=== PATIENT | female | born 1990 | race Caucasian/White ===

== ENCOUNTER 2019-01-16 08:22 | Inpatient (IN) | payer OTHER ==
[2019-01-16] MEDS ORDERED: MISOPROSTOL 200 MCG TAB PR ×2 (09:00→12:00)
[2019-01-16] MEDS ORDERED: CEFAZOLIN 2 GM/50 ML (PMX) 50 ML IVPB (09:00)
[2019-01-16] MEDS ORDERED: METHYLERGONOVINE 0.2 MG INJ IM ×2 (09:00→12:00)
[2019-01-16] MEDS ORDERED: OXYTOCIN 30 UNITS/LR 500 ML IV ×2 (09:00→12:00)
[2019-01-16] MEDS ORDERED: CARBOPROST 250 MCG INJ IM ×2 (09:00→12:00)
[2019-01-16] MEDS: LACTATED RINGER'S 1,000 ML IV ×2 (09:31→23:24)
[2019-01-16 09:39] LABS: ADD MAN DIFF? NO
[2019-01-16 09:44] LABS: WHITE BLOOD COUNT 7.5 10^3/ul (4.8-10.8)
[2019-01-16 09:44] LABS: BASOPHILS % 0.4 % (0.0-2.0); EOSINOPHILS # 0.1 10^3/ul (0.0-0.5); EOSINOPHILS % 0.9 % (0.0-7.0); HEMATOCRIT 40.4 % (37.0-47.0); HEMOGLOBIN 13.8 g/dl (12.0-16.0); LYMPHOCYTES # 1.8 10^3/ul (0.8-2.9); LYMPHOCYTES % 23.5 % (15.0-51.0); MEAN CORPUSCULAR HEMOGLOBIN 33.3 pg (29.0-33.0); MEAN CORPUSCULAR HGB CONC 34.2 g/dl (32.0-37.0); MEAN CORPUSCULAR VOLUME 97.3 fl (82.0-101.0); MEAN PLATELET VOLUME 10.3 fl (7.4-10.4); MONOCYTE # 0.5 10^3/ul (0.3-0.9); NEUTROPHIL # 5.1 10^3/ul (1.6-7.5); NEUTROPHILS % 68.7 % (39.0-77.0); PLATELET COUNT 179 10^3/UL (140-415); RED BLOOD COUNT 4.15 10^6/ul (4.20-5.40); RED CELL DISTRIBUTION WIDTH 13.2 % (11.5-14.5)
[2019-01-16 10:03] LABS: INR 0.89; PROTIME 12.1 Sec (11.9-14.9); PT RATIO 0.9
[2019-01-16 10:04] LABS: PARTIAL THROMBOPLASTIN TIME 25.7 Sec (23.0-35.0)
[2019-01-16] MEDS ORDERED: CITRIC ACID/NA CITRATE 30 ML CUP (11:05)
[2019-01-16] MEDS ORDERED: ONDANSETRON 4 MG INJ (11:06)
[2019-01-16] MEDS: ONDANSETRON 4 MG INJ IV (11:12)
[2019-01-16] MEDS: CITRIC ACID/NA CITRATE 30 ML CUP PO (11:12)
[2019-01-16] MEDS: CEFAZOLIN 2 GM/50 ML (PMX) 50 ML IVPB ×2 (11:24→23:24)
[2019-01-16] MEDS ORDERED: OXYTOCIN 10 UNIT INJ (11:27)
[2019-01-16] MEDS ORDERED: morphine SULFATE/PF (10 MG/10 ML) INJ (11:27)
[2019-01-16] MEDS ORDERED: METOCLOPRAMIDE 10 MG INJ (11:27)
[2019-01-16] MEDS ORDERED: NALOXONE (0.4 MG/ML) INJ IV (12:00)
[2019-01-16] MEDS ORDERED: FENTAnyl 50 MCG/ML VIAL IV ×3 (12:00)
[2019-01-16] MEDS ORDERED: ALBUTEROL 0.083% (NEB) 2.5 MG/3 ML AMP HHN (12:00)
[2019-01-16] MEDS ORDERED: IPRATROPIUM (NEB) 0.5 MG/2.5 ML AMP HHN (12:00)
[2019-01-16] MEDS ORDERED: TRIMETHOBENZAMIDE 100 MG/ML VIAL IM ×2 (12:00)
[2019-01-16] MEDS ORDERED: NA PHOSPHATE/BIPHOS 133 ML ENEMA PR (12:00)
[2019-01-16] MEDS ORDERED: MIDAZOLAM 1 MG/ML 2 ML INJ IV (12:00)
[2019-01-16] MEDS ORDERED: MEPERIDINE 25 MG INJ IV (12:00)
[2019-01-16] MEDS ORDERED: hydrALAzine 20 MG INJ IV (12:00)
[2019-01-16] MEDS ORDERED: EPHEDrine 25 MG/5 ML SYG IV (12:00)
[2019-01-16] MEDS ORDERED: HYDROmorphONE 1 MG/5 ML IV SYRINGE IV ×3 (12:00)
[2019-01-16] MEDS ORDERED: ONDANSETRON 4 MG INJ IV ×2 (12:00)
[2019-01-16] MEDS ORDERED: METHYLERGONOVINE 0.2 MG TAB PO (12:00)
[2019-01-16] MEDS ORDERED: HYDROCODONE/APAP (5/325) TAB PO (12:00)
[2019-01-16] MEDS ORDERED: OXYCODONE/ACETAMINOPHEN (5/325) TAB PO ×2 (12:00)
[2019-01-16] MEDS ORDERED: LABETALOL HCL 20MG INJ IV (12:00)
[2019-01-16] MEDS ORDERED: DIPHENHYDRAMINE 50 MG INJ IV ×2 (12:00)
[2019-01-16] MEDS ORDERED: morphine 2 MG INJ IV ×2 (12:00)
[2019-01-16] MEDS ORDERED: NALBUPHINE HCL (10 MG/1 ML) INJ IV (12:00)
[2019-01-16] MEDS: OXYTOCIN 30 UNITS/LR 500 ML IV (14:13)
[2019-01-16 15:15] LABS: RAPID PLASMA REAGIN NONREACTIVE (NR)
[2019-01-16] MEDS ORDERED: CEFAZOLIN 1 GM INJ IVPB (15:52)
[2019-01-16] MEDS: SENNA/DOCUSATE NA (8.6MG/50MG) TAB PO (21:00)
[2019-01-17] MEDS: CEFAZOLIN 2 GM/50 ML (PMX) 50 ML IVPB ×2 (07:00→12:35)
[2019-01-17 08:16] LABS: ADD MAN DIFF? NO
[2019-01-17] MEDS: LANOLIN HPA 1 PKT TOP (08:24)
[2019-01-17] MEDS: SENNA/DOCUSATE NA (8.6MG/50MG) TAB PO ×2 (08:24→21:46)
[2019-01-17] MEDS: KETOROLAC 30 MG INJ IV (08:24)
[2019-01-17 08:31] LABS: BASOPHIL # 0.1 10^3/ul (0.0-0.1); BASOPHILS % 0.6 % (0.0-2.0); EOSINOPHILS # 0.1 10^3/ul (0.0-0.5); HEMATOCRIT 36.1 % (37.0-47.0); HEMOGLOBIN 12.3 g/dl (12.0-16.0); LYMPHOCYTES # 1.3 10^3/ul (0.8-2.9); LYMPHOCYTES % 14.7 % (15.0-51.0); MEAN CORPUSCULAR HEMOGLOBIN 33.5 pg (29.0-33.0); MEAN CORPUSCULAR HGB CONC 34.1 g/dl (32.0-37.0); MEAN CORPUSCULAR VOLUME 98.4 fl (82.0-101.0); MEAN PLATELET VOLUME 10.3 fl (7.4-10.4); MONOCYTE # 0.7 10^3/ul (0.3-0.9); MONOCYTES % 7.3 % (0.0-11.0); NEUTROPHIL # 6.9 10^3/ul (1.6-7.5); PLATELET COUNT 162 10^3/UL (140-415); RED BLOOD COUNT 3.67 10^6/ul (4.20-5.40); RED CELL DISTRIBUTION WIDTH 13.1 % (11.5-14.5)
[2019-01-17] MEDS: LACTATED RINGER'S 1,000 ML IV ×3 (08:56→09:53)
[2019-01-17] MEDS: IBUPROFEN 800 MG TAB PO ×2 (14:29→21:46)
[2019-01-17] MEDS: HYDROCODONE/APAP (5/325) TAB PO (16:04)
[2019-01-18] MEDS: IBUPROFEN 800 MG TAB PO ×3 (05:32→22:47)
[2019-01-18] MEDS: SENNA/DOCUSATE NA (8.6MG/50MG) TAB PO ×2 (08:43→22:47)
[2019-01-18] MEDS: BISACODYL (EC) 5 MG TAB PO (14:00)
[2019-01-18] MEDS: LANOLIN HPA 1 PKT TOP (22:47)
[2019-01-19] MEDS: IBUPROFEN 800 MG TAB PO (05:15)
[2019-01-19] MEDS: SENNA/DOCUSATE NA (8.6MG/50MG) TAB PO (09:00)
[2019-01-19] MEDS: DIPHTH/TET/ACEL PERTUSS (ADULT) 0.5 ML VIAL IM* (09:32)
[2019-01-19] MEDS: MEASLES,MUMPS,RUBELLA VACCINE INJ SC* (09:57)
== END 2019-01-19 12:50 | disposition home or self-care (01) | DRG 788 ==
LOC: L-D 08:22 → PP1 15:50
PROVIDERS: Obstetrics & Gynecology
PROC: 10D00Z1 Extraction of Products of Conception, Low, Open Approach (ICD-10-PCS; principal; 2019-01-16 10:30)
DX: O65.5 Obstructed labor due to abnormality of maternal pelvic organs (principal); O34.211 Maternal care for low transverse scar from previous cesarean delivery; Z3A.39 39 weeks gestation of pregnancy; Z37.0 Single live birth
CPT/HCPCS: 85025; 85610; 85730; 86592; 86850; 86900; 86901; 90715; 99464